=== PATIENT | male | born 1960 | race Caucasian/White ===

== ENCOUNTER → 2023-08-12 07:13 | Outpatient (REF) | payer BC, SELFPAY | LOC: RAD 07:13 | PROVIDERS: ATTENDING PHYSICIAN Family Medicine | DX: F17.210 Nicotine dependence, cigarettes, uncomplicated (principal) | CPT/HCPCS: 71271 ==

== ENCOUNTER → 2023-12-24 06:46 | Outpatient (REF) | payer BC, SELFPAY | LOC: RSP 06:46 | PROVIDERS: ATTENDING PHYSICIAN Family Medicine | DX: F17.210 Nicotine dependence, cigarettes, uncomplicated (principal); R53.83 Other fatigue | CPT/HCPCS: 94727; 94729; 94010 ==

== ENCOUNTER → 2024-06-10 06:53 | Outpatient (REF) | payer BC, SELFPAY | LOC: RAD 06:53 | PROVIDERS: ATTENDING PHYSICIAN Family Medicine | DX: I73.9 Peripheral vascular disease, unspecified (principal) | CPT/HCPCS: 93922 ==

== ENCOUNTER → 2024-11-30 07:36 | Outpatient (REF) | payer BC, SELFPAY ==
[2024-12-01 14:14] LABS: Lyme Antibody Screen, EIA Presump. Positive (Negative)
[2024-12-05 18:54] LABS: Lyme Ab Western Blot IgG Positive (Negative); Lyme Ab Western Blot IgM Positive (Negative)
== END ==
LOC: RAD 07:36
PROVIDERS: ATTENDING PHYSICIAN Family Medicine
DX: Z87.891 Personal history of nicotine dependence (principal); Z12.2 Encounter for screening for malignant neoplasm of respiratory organs; M25.50 Pain in unspecified joint
CPT/HCPCS: 36415; 71271; 86617; 86618

== ENCOUNTER → 2025-01-06 07:58 | Outpatient (REF) | payer BC, SELFPAY | LOC: RAD 07:58 | PROVIDERS: ATTENDING PHYSICIAN Surgery Vascular Surgery; FAMILY PHYSICIAN Family Medicine | DX: I73.9 Peripheral vascular disease, unspecified (principal) | CPT/HCPCS: 93922; 93925 ==

== ENCOUNTER 2025-02-02 06:10 | Day surgery (SDC) | payer BC, SELFPAY ==
[2025-01-30 09:50] VITALS: BMI 26.3
[2025-01-30 10:38] LABS: APTT 25.2 Sec (23.4-35.0); INR 0.98; PT 13.3 Sec (11.4-14.6)
[2025-01-30 10:49] LABS: Hematocrit 41.3 % (39.0-52.0); Hemoglobin 14.0 g/dL (13.0-18.0); Mean Corp Hgb Conc. 33.9 g/dL (33.0-37.0); Mean Corpuscular Volume 86.4 fL (80.0-94.0); Nucleated Red Blood Cells % 0 % (-); Platelet Count 262 10^3/uL (130-400); Red Cell Dist. Width 12.5 % (11.5-14.5)
[2025-01-30 10:53] LABS: Blood Urea Nitrogen 28 mg/dl (9-20); Calcium 10.2 mg/dl (8.4-10.2); Carbon Dioxide 25 mmol/L (22-30); Chloride 103 mmol/L (98-107); Estimated Creatinine Clearance 56 ml/min; Glucose 106 mg/dl (70-99); Potassium 4.6 mmol/L (3.5-5.1); Sodium 137 mmol/L (135-145); eGFR > 60.00
[2025-02-02] VITALS (16 sets, daily range): BP systolic 12–148; BP diastolic 74–95; BMI 26.6
[2025-02-02] MEDS: NSS 500 IV (06:50)
--- NOTE | 2025-02-02 07:15 | W.SUR.PREOP ---
Pre-Operative Surgical Note
-
I have examined this patient prior to the performance of the scheduled procedure.
The patient's condition is unchanged from the time of the current History and
Physical and the patient is able to undergo the scheduled procedure.
Note I discussed extensively with the patient indications for angiogram for claudication with failure of exercise therapy/regular walking regimen. Discussed with him findings of ultrasound. Discussed that he does have common femoral disease that
may be not amenable to endovascular therapy (may require staged surgical revascularization). Discussed procedure of angiography, anticipated outcomes/recovery. Discussed risks of procedure including but not limited to bleeding, arterial
injury/worsened or acute limb ischemia, renal failure. He understands all and wishes to proceed. Plan right lower extremity arteriogram, possible angioplasty/stent
[2025-02-02] MEDS: LOW STRENGTH ASPIRIN 81 MG PO (07:20)
--- NOTE | 2025-02-02 08:13 | W.SUR.POST ---
Surgical Immediate Post Op
Note
Pre Op Diagnosis: PAD
Post Op Diagnosis: PAD
Procedure Performed: RLE diagnostic arteriogram
Primary Surgeon: Derian
Anesthesia: local and anesthesia
Estimated Blood Loss: <2cc
Fluids: see anesthesia flow sheet
Drains/Shunts: none
Specimens/Cultures: none
Doppler/Duplex/Angio (Y/N): Y
Complications: none
Operative Findings: No endovascular options
--- NOTE | 2025-02-02 08:22 | OR.RPT ---
Operative Report
Operative Report
PROCEDURE DATE: 02/02/2025
Preoperative diagnosis: Debilitating right lower extremity claudication
Postoperative diagnosis: Same
Procedure:
1. Duplex assisted cannulation of left common femoral artery.
2. Aortogram and pelvic angiogram.
3. Right lower extremity arteriogram with selective catheterization of right common femoral artery via left common femoral artery puncture.
4. Left femoral angiogram.
Surgeon: Derian
Strap Buckler Machine: None
Complications: None
Anesthesia: General
Fluoroscopy:
4.5 min
64 mGy
13.34 gy.cm2
Indications for procedure:
Debilitating right lower extremity claudication. Risk/benefits/alternatives of angiography were discussed. Patient understood and wished to proceed.
Description of procedure:
Patient was identified, brought to the operating room. Placed on the table in the supine position. After the adequate administration of anesthesia, the patient was prepped and draped in the standard surgical fashion. A standard preoperative
timeout was undertaken and everybody was in agreement with the plan.
The left common femoral artery was accessed with a micropuncture kit under direct duplex ultrasound guidance. A 5 [place] sheath was then advanced over a 0.035 inch wire. Initially I had difficulty getting wire into the aorta past the left common
iliac artery. I exchanged for a glide catheter and a Glidewire and was able to direct the wire relatively easily into the aorta at that point. I then exchanged for a kennedy's hook catheter. The kennedy's hook catheter was advanced into the
abdominal aorta. Aortogram and pelvic angiogram was obtained. Findings as follows:
Infrarenal aorta: Patent with no significant stenosis, significant eccentric calcified plaque noted.
Right common iliac artery: Patent with severe eccentric calcified plaque, but no definitive stenosis.
Right external iliac artery: Patent with bulky popcorn-like plaque, likely at least moderate stenoses in the mid to distal segment.
Left common iliac artery: Patent with bulky calcified plaque, possible mild stenosis but difficult to say and two-dimensional angiography.
Left external iliac artery: Patent with no significant stenosis.
Using a floppy angled hydrophilic wire, the right common femoral artery was cannulated and the catheter was advanced. Right lower extremity arteriogram was obtained. Findings as follows:
Common femoral artery: Patent proximally with bulky popcorn-like plaque in the midsegment. Then the distal common femoral artery/femoral bifurcation appeared essentially occluded.
Profunda femoris artery: Patent proximally with reconstituted flow beyond the occlusion of the femoral bifurcation. However there is only slow flow seen distally. Difficult to say if there is distal obstructive disease or whether this was just
slow flow due to reconstitution of flow in the vessel secondary to proximal occlusion.
Superficial femoral artery: As noted above, occlusion of the femoral bifurcation, but reconstituted flow in the superficial femoral artery with patent flow through the superficial femoral artery with no stenosis identified.
Popliteal artery: Patent with no significant stenosis.
Anterior tibial artery: Patent with no significant stenosis.
Tibial peroneal trunk: Patent with no significant stenosis
Peroneal artery:Patent with no definitive stenosis, but relatively diminutive and poor filling distally. Difficult to say whether what I was seeing as the peroneal artery was the true peroneal or a collateral.
Posterior tibial artery: Patent with no significant stenosis.
At this point I felt that there is nothing endovascular to render here. The patient would likely best be served in terms of revascularization with a femoral endarterectomy (if proximal control could be obtained due to heavy calcific plaque in the
external iliac artery). Potential concomitant retrograde iliac stenting could be performed. Likely will plan CT angiogram in the outpatient setting to better assess the inflow plaque burden.
At this point, the wires and catheters were withdrawn. Angiogram was performed through the sheath that demonstrated good puncture of the left common femoral artery with some mild to moderate plaque disease in the left common femoral artery, but
significantly less than the contralateral side. The sheath was withdrawn and manual pressure was applied to the puncture site. Full hemostasis was achieved.
The patient tolerated procedure well.
[2025-02-02] MEDS: NSS 1000 IV (09:15)
--- NOTE | 2025-02-02 11:00 | PTCARENOTE ---
Dr Menard at patient bedside. Made aware of left groin hematoma. Dr Menard assessed left groin and ordered left side US.
--- NOTE | 2025-02-02 14:05 | PTCARENOTE ---
Dr Menard at pt bedside speaking to pt and assessing pt's left groin. Dr Menard states ultrasound of left groin is normal. Pt is okay for discharge. Will continue to monitor.
== END 2025-02-02 14:30 | disposition home or self-care (01) ==
LOC: CATH 06:10
PROVIDERS: ATTENDING PHYSICIAN Surgery Vascular Surgery; OTHER PHYSICIAN Nuclear Medicine Nuclear Cardiology; PRIMARYCARE PHYSICIAN Family Medicine
DX: I70.212 Atherosclerosis of native arteries of extremities with intermittent claudication, left leg (principal); Z79.82 Long term (current) use of aspirin
CPT/HCPCS: 36246; 75710; 75625; 36415; 80048; 85025; 85610; 85730; 86850; 86900; 86901; 93005; 93926; C1769; C1894

== ENCOUNTER → 2025-02-08 15:59 | Outpatient (REF) | payer BC, SELFPAY | LOC: RAD 15:59 | PROVIDERS: ATTENDING PHYSICIAN Surgery Vascular Surgery; FAMILY PHYSICIAN Family Medicine | DX: I73.9 Peripheral vascular disease, unspecified (principal) | CPT/HCPCS: 75635; Q9967 ==

== ENCOUNTER → 2025-02-23 14:01 | Outpatient (REF) | payer BC, SELFPAY | LOC: RCS 14:01 | PROVIDERS: ATTENDING PHYSICIAN Nuclear Medicine Nuclear Cardiology; FAMILY PHYSICIAN Family Medicine | DX: R00.2 Palpitations (principal) | CPT/HCPCS: 93306 ==

== ENCOUNTER → 2025-02-27 08:14 | Outpatient (REF) | payer BC, SELFPAY | LOC: HWRCS 08:14 | PROVIDERS: ATTENDING PHYSICIAN Nuclear Medicine Nuclear Cardiology; FAMILY PHYSICIAN Family Medicine | DX: I10 Essential (primary) hypertension (principal); Q23.1 Congenital insufficiency of aortic valve; I25.10 Atherosclerotic heart disease of native coronary artery without angina pectoris; R06.02 Shortness of breath | CPT/HCPCS: 78452; 93017; A9500; J2785 ==

== ENCOUNTER 2025-03-09 07:52 | Inpatient (IN) | payer BC, SELFPAY ==
[2025-03-03 09:14] VITALS: BMI 26.3
[2025-03-03 09:56] LABS: Hematocrit 41.2 % (39.0-52.0); Hemoglobin 14.2 g/dL (13.0-18.0); Mean Corp Hgb Conc. 34.5 g/dL (33.0-37.0); Mean Corpuscular Volume 87.7 fL (80.0-94.0); Nucleated Red Blood Cells % 0 % (-); Platelet Count 296 10^3/uL (130-400); Red Cell Dist. Width 12.8 % (11.5-14.5)
[2025-03-03 10:01] LABS: APTT 27.8 Sec (23.4-35.0); INR 1.00; PT 13.5 Sec (11.4-14.6)
[2025-03-03 10:38] LABS: Blood Urea Nitrogen 22 mg/dl (9-20); Calcium 9.9 mg/dl (8.4-10.2); Carbon Dioxide 27 mmol/L (22-30); Chloride 103 mmol/L (98-107); Estimated Creatinine Clearance 69 ml/min; Glucose 106 mg/dl (70-99); Potassium 4.5 mmol/L (3.5-5.1); Sodium 138 mmol/L (135-145); eGFR > 60.00
[2025-03-09] VITALS (10 sets, daily range): BP systolic 106–159; BP diastolic 70–102; BMI 26.3; BMI 26.2
[2025-03-09] MEDS: BACTROBAN NASAL 1 GRAM NASAL (08:32)
[2025-03-09] MEDS: PERIDEX 0.12% ORAL RINSE 15 ML PO (08:32)
[2025-03-09] MEDS: NSS 500 IV (08:32)
--- NOTE | 2025-03-09 08:37 | CON.INTV ---
Consultation
Consultation Request
Date/Time Consultation Requested: 03/09/2025
Date/Time Consultation Performed: 03/09/2025
Medical History
-
Chief Complaint: Limb pain
History of Present Illness:
Patient is a very pleasant 64-year-old gentleman with 40+ pack-year smoking history, who has ongoing symptoms of right leg claudication. He was evaluated by vascular surgery services outpatient and was recommended endarterectomy as part of
treatment. Patient was admitted to the hospital for above surgery, postsurgery was admitted to ICU and beater boss consultation was requested for further input.
Past medical history. Hypertension, hyperlipidemia, history of smoking, gastroesophageal reflux disease, pulmonary nodule, bicuspid aortic valve.
Past surgical history. Left axillary mass biopsy. Inguinal hernia repair.
Family history. No family history of lung cancer.
Social history. Patient has 40+ pack-year smoking history, quit 3 years ago. Currently vaping. Motivated to quit.
Allergies / Home Medications
Allergies
Allergy/AdvReac Type Severity Reaction Status Date / Time
No Known Allergies Allergy Verified 03/09/25 08:23
Home Medications
�Medication �Instructions �Recorded �Confirmed �Last Taken �Type
atenolol 50 mg tablet 50 mg PO DAILY 06/23/15 03/09/25 03/08/25 06:30 History
fenofibrate 160 mg tablet 160 mg PO DAILY 06/23/15 03/09/25 03/08/25 06:30 History
omeprazole 20 mg capsule,delayed 20 mg PO DAILY 06/23/15 03/09/25 03/08/25 06:30 History
release
hydrochlorothiazide 12.5 mg tablet 12.5 mg PO DAILY 01/26/25 03/09/25 03/08/25 06:30 History
multivitamin 1 tab PO NOON 01/26/25 03/09/25 03/08/25 17:00 History
psyllium 1 packet PO DAILY 01/26/25 03/09/25 03/08/25 17:00 History
rosuvastatin 20 mg tablet 20 mg PO DAILY 01/26/25 03/09/25 03/08/25 06:30 History
amlodipine 10 mg-benazepril 40 mg 1 cap PO DAILY 02/02/25 03/09/25 03/08/25 06:30 History
capsule
aspirin 81 mg tablet,delayed 81 mg PO DAILY 02/02/25 03/09/25 03/09/25 06:30 History
release
coenzyme Q10 100 mg capsule 100 mg PO DAILY 02/02/25 03/09/25 03/08/25 06:30 History
(CoQ-10)
glucosamine sulf dipot 2 cap PO DAILY 02/02/25 03/09/25 03/08/25 17:30 History
chlr,msm,chond 550 mg-C 30 mg-red
1 mg capsule (Glucosamine
Chondroitin)
apple cider vinegar 1 dose PO DAILY 02/28/25 03/09/25 03/08/25 17:00 History
calcium carbonate 500 mg PO DAILY 02/28/25 03/09/25 03/08/25 17:00 History
Review of Systems
-
Hematologic/Lymphatic: Other (All 14 systems reviewed and negative except as stated above in the history of present illness.)
Vitals / Labs / Diagnostic Testing
Vital Signs
Temp Pulse Resp BP Pulse Ox
97.8 F 58 16 159/92 97
03/09/25 08:00 03/09/25 08:00 03/09/25 08:00 03/09/25 08:00 03/09/25 08:00
Lab Data
03/03/25 09:12
03/03/25 09:12
Diagnostic Testing:
Physical Exam
-
HEENT: Normocephalic
Cardiovascular: S1/S2
Respiratory: Clear and Non-Labored Respirations
GI: Soft and Non Distended
Neurology: Awake and Alert
Skin: Warm
General: Comfortable
Assessment
-
Patient is a 64 gentleman with history of severe right lower extremity claudication, S/p right femoral endarterectomy with bovine pericardial patch angioplasty by vascular surgery service, POD #0
Continue observation following procedure
Follow neurovascular checks per protocol
ASA, amlodipine, atenolol, Tricor as well as rosuvastatin.
Follow BP monitoring and parameters as set by primary team
Monitor on telemetry
Pain control per protocol
RASS goal 0
[id number] history of smoking, currently vaping.
Prior low-dose CT scan imagings reviewed
Encouraged IS
Diet advancement per protocol
Aspiration precautions
GI prophylaxis: Protonix
Cr at baseline, follow UO
Critical I/Os
Void trials
Replete electrolytes as needed
No signs/symptoms suspicious for infectious etiology at this time
Will observe off antibiotics for now
Follow temperatures/CBC
Hb and platelets postoperatively stable
DVT prophylaxis: SCDs. Defer to surgery service
Other medical diagnoses:
- Bicuspid aortic valve
- Hypertension, hyperlipidemia
- GERD
- History of smoking. 40 Pack years history. Quit 3 years ago. Currently vaping. Motivated to quit. Last spirometry without obstruction. Not on any inhaler therapy at baseline.
- H/o Alcohol use. 6 beers daily. Add MSAS scoring
- Pulmonary nodules. 3 mm, lingula. Stable. Out patient f/u with Pulmonary clinic.
Critical Care time [58] mins -- The patient is admitted for acute critical illness for the treatment of vital organ failure and/or prevention of further life-threatening conditions. Total care includes time spent in review of history, physical exam,
medications, hemodynamic/ventilator parameters, laboratory data, imaging and discussion with house staff, pharmacy, respiratory therapy, senior interactive developer, and nursing
Data:
Lexiscan 02/2025: Normal perfusion imaging
ECHO 02/2025: 1. Ejection fraction is 50-55% by visual assessment.
2. Compared to a prior transthoracic echocardiogram study from September 2022 no significant changes are seen.
3. Aortic valve appears functionally bicuspid (partial fusion of right coronary and noncoronary cusps) with no evidence of aortic stenosis and mild aortic insufficiency.
4. Global strain -17.8%.
5. Mildly dilated aortic root measuring 4.4 cm at the sinuses of Valsalva; 3.7 cm at the sinotubular junction and 3.9 cm in the ascending aorta. Aortic arch is normal in caliber.
6. Mild concentric left ventricular hypertrophy.
7. Moderate to severe tricuspid regurgitation. Estimated pulmonary artery pressure of 29 mmHg assuming a right atrial pressure of [address]
LDCT 11/2024: There is a stable 3 mm nodule within the lingula. No new suspicious pulmonary nodules.
Stable mild fusiform dilation of the ascending thoracic aorta.
LUNG-RADS category: 2 (<1% chance of malignancy)
Spirometry 12/2023: Normal study without evidence of obstruction or restriction. Normal diffusion capacity
--- NOTE | 2025-03-09 08:42 | W.SUR.PREOP ---
Pre-Operative Surgical Note
-
I have examined this patient prior to the performance of the scheduled procedure.
The patient's condition is unchanged from the time of the current History and
Physical and the patient is able to undergo the scheduled procedure.
--- NOTE | 2025-03-09 11:26 | W.SUR.POST ---
Surgical Immediate Post Op
Note
Pre Op Diagnosis: PAD
Post Op Diagnosis: PAD
Procedure Performed: Right femoral endarterectomy with bovine pericardium patch angioplasty
Primary Surgeon: Sd Menard MD
Die Cast Operator: TATY Gallagher
Anesthesia: GETA
Estimated Blood Loss: 25 ml
Fluids: See anesthesia flow sheet
Drains/Shunts: N/A
Specimens/Cultures: Right femoral plaque
Doppler/Duplex/Angio (Y/N): Y, doppler
Complications: None
Operative Findings: Post operative palpable DP pulse at right foot
[2025-03-09 11:58] LABS: Glucose - Point of Care 111 mg/dl (70-99)
[2025-03-09 12:33] LABS: Hematocrit 35.4 % (39.0-52.0); Hemoglobin 12.4 g/dL (13.0-18.0); Mean Corp Hgb Conc. 35.0 g/dL (33.0-37.0); Mean Corpuscular Volume 87.2 fL (80.0-94.0); Platelet Count 225 10^3/uL (130-400); Red Cell Dist. Width 12.8 % (11.5-14.5)
--- NOTE | 2025-03-09 12:35 | OR.RPT ---
Operative Report
Operative Report
PROCEDURE DATE: 03/09/25
Preoperative diagnosis: Severe debilitating right lower extremity claudication. Bulky common femoral plaque, near occlusive.
Postoperative diagnosis: Same
Procedure: Right femoral endarterectomy (common femoral artery, proximal superficial femoral artery, origin of profunda femoris artery) with bovine pericardial patch angioplasty.
Surgeon: Derian
Supervisor Sample Preparation: MACKENZIE Blair (necessary for assistance with traction/countertraction, following of suture line, assistance with closure)
Complications: None
Anesthesia: General
Indications for procedure:
Debilitating right lower extremity claudication. Severe plaque disease, with bulky occlusive plaque in the distal common femoral artery. There was some external iliac artery plaque 2 and had discussed possibility of angiogram/angioplasty and
stenting if needed. Risk/benefits/alternatives also discussed. Patient understood all wished to proceed.
Description of procedure:
Patient was identified brought to the operating room placed on the table in supine position. After the adequate administration of anesthesia and perioperative antibiotics, he was prepped and draped in the standard surgical fashion. A standard
preoperative timeout was undertaken and everybody was in agreement the plan. A longitudinal incision was made in the right groin that was carried through skin subcutaneous tissue. Using the electrocautery, I continued to dissect down to the level
of the inguinal ligament superiorly. Any lymphatic tissues in her dissection field were ligated between silk ties and divided. I identified the common femoral artery as it emerged from underneath inguinal ligament. There was heavy plaque in the
midsegment, more proximally there was posterior plaque, but the anterior wall was soft and pulsatile. I then dissected the common femoral artery to the bifurcation. The proximal superficial femoral artery was isolated and carefully
circumferentially dissected and a vessel loop passed around it. About 3-4 cm beyond the origin as well as isolated it and it was very soft and disease-free here. Next I dissected the origin of the profunda. I dissected the profunda which was soft
through its entirety for a couple centimeters. There was a proximal branch that emanated laterally that was carefully circumferentially controlled with a vessel loop. Then the main profunda beyond there was also circumferentially carefully
dissected and controlled with the vessel loop. (Vesseloops not yet tightened). There was an additional branch on the common femoral artery that ran posteriorly and then medially that was also carefully circumferentially controlled. There was an
additional branch at the same juncture of that branch that ran posterior and laterally which was also controlled with a vessel.. These were both controlled with Vesseloops after careful circumferential dissection. Next, I dissected underneath the
inguinal ligament. As noted the proximal common femoral artery was softer anteriorly but there was some posterior plaque. Just cephalad to here, there was a moderate plaque in the external iliac artery but there was a strong pulsation here. There
is a good strong pulsation just beyond here into the soft part of the common femoral artery as well. That other plaque in the external iliac was just proximal to the circumflex iliac artery branches. However to get more proximal to there if I
wanted to remove that plaque as well, would have been too far proximal to control from the groin.
Therefore at this point I felt that the artery was soft and clamped both in the proximal common femoral artery/distal external iliac artery just distal to the circumflex iliac branches. I circumferentially dissected here and passed a vessel loop
around.
Now I gave the patient approximately 6000 units of intravenous heparin. Once this had circulated I then clamped the superficial femoral artery beyond the origin where it was soft, and tightened double looped Vesseloops on the profunda and its
branch. Any other Vesseloops were tightened on branches. Next a Derra clamp was placed on the proximal common femoral artery. I then made an arteriotomy with an 11 blade beginning on the very proximal SFA and extending cephalad to the proximal
common femoral artery with a Lacey scissor. I encountered bulky somewhat coral reef like plaque. There was severe bulky plaque in the distal common femoral artery as noted on CT scan and angiographic imaging. I was able to use a [place] to create
an endarterectomy plane cleanly.
I then endarterectomized the plaque mobilizing it in the common femoral artery. I then transected it in the common femoral artery and grasped the plaque and feathered out a nice clean endpoint in the superficial femoral artery. I then grasped that
distal plaque and everted it out of the origin of the profunda. I then sent this off for specimen. I looked down the barrel of the origin of the profunda and the intima was nicely adherent. The distal endpoint on the SFA also looks great. Now I
grasped the proximal plaque and used a [place] to endarterectomized back almost to the level of the clamp that I had on the common femoral artery. Once I did this I then grasped the clamp with a Crile clamp, and then temporarily released my Derra
clamp while teasing the plaque out. It came out en bloc. Now I had an excellent pulsation into the common femoral artery. I now removed any fine debris at the proximal endpoint with fine forceps. I now had a good proximal endpoint as well. Any
fine debris throughout the endarterectomy bed was now removed with fine forceps.
Now I was very satisfied. I flushed heparinized saline. I then used a bovine pericardial patch to sew a long patch angioplasty using a running 5-0 Prolene suture. Prior to completing and tying down my suture line I backbled the false pass arteries, I
then flushed heparinized saline and completed and tied down my suture line. Next I released the vessel loop on the profunda branch, and then released the Derra clamp on the common femoral artery. I then released the main profunda vessel loop and
the SFA clamp. There is now excellent pulsatile flow into all 3 of these vessels. Doppler confirmed excellent signals. A single 5-0 Prolene [id number] stitch was placed along the suture line for hemostasis. Given that the pulsation was so
strong, I did not feel that stenting of the external iliac artery was required at this point.
At this point I meticulously achieved and confirmed full hemostasis. Protamine was given reverse the heparin. I then irrigated. We then closed in layers using 2 layers of 2-0 Vicryl running suture, followed by 3-0 Vicryl deep dermal layer
followed by 4-0 Monocryl subcuticular stitch. Dermabond was applied. The patient tolerated the procedure well. Upon completion he had a palpable DP and PT pulse on the right foot. All sponge, needle, instrument counts were correct at the end of
the case. Patient was transported to recovery room in stable condition.
[2025-03-09 12:43] LABS: Blood Urea Nitrogen 20 mg/dl (9-20); Calcium 8.9 mg/dl (8.4-10.2); Carbon Dioxide 24 mmol/L (22-30); Chloride 109 mmol/L (98-107); Estimated Creatinine Clearance 86 ml/min; Glucose 114 mg/dl (70-99); Potassium 4.2 mmol/L (3.5-5.1); Sodium 137 mmol/L (135-145); eGFR > 60.00
--- NOTE | 2025-03-09 12:50 | PTCARENOTE ---
Patient received from the PACU via bed accompanied by RN x 2. Transferred and admitted to ICU bed 3371. Placed on CM, SB on CM. See water plant pump operator charted on worklist flowsheet. BBS clear but diminished t/o except right base with expiratory wheezes.
S1S2 regular with positive murmur. Right groin surgical site soft but tender with mild SQ emphysema. RLE W&D with sensation and pulses intact. Phan cath in place draining clear yellow urine. IVF hung per order. Right Radial [place] leveled and zeroed
as needed; Good waveform, good square wave. c/o mild discomfort of right groin and discomfort at [place] and Phan cath insertion sites. Bed in low and locked position, call watson within reach.
[2025-03-09 13:09] LABS: Glucose - Point of Care 115 mg/dl (70-99)
[2025-03-09] MEDS: NSS 1000 IV (13:11)
--- NOTE | 2025-03-09 16:00 | PTCARENOTE ---
Addendum entered by Piedad Juarez RN 03/09/25 16:55:
Kristal Montes APN notified of patient's elevated BP. 150-170/84-92. Awaiting orders.
Original Note:
Essentially no change in patient's physical assessment. Right groin site with dressing CDI, site soft, good sensation and pulses RLE. BBS clear but diminished t/o. BP slightly elevated 150-170/70-80s. UO adequate. Sats 97% on 2L/nc.
[2025-03-09] MEDS: THERAGRAN PO (16:13)
[2025-03-09] MEDS: HEPARIN 5000 UNITS SC (16:14)
[2025-03-09] MEDS: TENORMIN 50 MG PO (19:13)
--- NOTE | 2025-03-09 19:25 | PTCARENOTE ---
Report given verbally to oncoming shift, Bernarda RN. Bedside rounds complete. Questions answered.
[2025-03-09] MEDS: TYLENOL 650 MG PO (19:40)
--- NOTE | 2025-03-09 21:54 | PTCARENOTE ---
Initial assessment as documented. B/L DP pulses palpable. C/O mild-moderate pain to R groin site, requested tylenol--given and effective.
[2025-03-10] VITALS (7 sets, daily range): BP systolic 96–150; BP diastolic 68–91; BMI 26.4
[2025-03-10] MEDS: NSS 1000 IV (00:59)
[2025-03-10] MEDS: HEPARIN 5000 UNITS SC ×3 (00:59→16:59)
[2025-03-10 05:30] LABS: Hematocrit 36.0 % (39.0-52.0); Hemoglobin 12.8 g/dL (13.0-18.0); Mean Corp Hgb Conc. 35.6 g/dL (33.0-37.0); Mean Corpuscular Volume 87.6 fL (80.0-94.0); Platelet Count 218 10^3/uL (130-400); Red Cell Dist. Width 13.0 % (11.5-14.5)
--- NOTE | 2025-03-10 05:32 | PTCARENOTE ---
Pt assessment unchanged. Safe environment maintained, call watson within reach.
[2025-03-10 05:38] LABS: INR 1.00; PT 13.7 Sec (11.4-14.6)
[2025-03-10 05:39] LABS: APTT 28.3 Sec (23.4-35.0)
[2025-03-10 05:57] LABS: Blood Urea Nitrogen 15 mg/dl (9-20); Calcium 9.1 mg/dl (8.4-10.2); Carbon Dioxide 22 mmol/L (22-30); Chloride 108 mmol/L (98-107); Estimated Creatinine Clearance 86 ml/min; Glucose 115 mg/dl (70-99); Potassium 4.1 mmol/L (3.5-5.1); Sodium 135 mmol/L (135-145); eGFR > 60.00
[2025-03-10] MEDS: CRESTOR 20 MG PO (07:58)
[2025-03-10] MEDS: NORVASC 10 MG PO (07:59)
[2025-03-10] MEDS: TENORMIN 50 MG PO (07:59)
[2025-03-10] MEDS: TRICOR 145 MG PO (08:00)
[2025-03-10] MEDS: ORETIC 12.5 MG PO (08:00)
[2025-03-10] MEDS: ZESTRIL 40 MG PO (08:00)
--- NOTE | 2025-03-10 08:00 | PTCARENOTE ---
Assumed care at 0715. Patient received lying in bed with eyes closed, lying still and respirations nonlabored. Edinses easily to name called. Shari at bedside to assess, updated with patient clinical status. New orders received. IVF discontinued.
Martinez catheter discontinued. Right A line previously leveled and zeroed, correlates with cuff pressure with good waveform; order now to discontinue. Soraya discontinued and manually pressure held to right radial artery for 5 minutes without evidence
of bleeding, pressure dressing donned. Patient states that right groin site pain is tolerable at 2/10 with rest. However, right groin site discomfort increased to 6/10 with mobility. After line and martinez out, patient assisted OOB to chair and
ambulates in room with gait steady, tolerates well. BBS clear but diminished t/o. S1S2 regular with positive murmur. SR on CM with 1st degree AVB, triplet PVCs noted. Abdomen soft and nontender. Good UO with martinez catheter, will monitor for UO after
martinez dc'd. Good appetite, no N/V. RLE with good sensation and circulation. Right groin site soft, dsg CDI. Call watson in reach.
[2025-03-10] MEDS: ASPIR LOW (ENTERIC COATED) 81 MG PO (08:01)
[2025-03-10] MEDS: PROTONIX 40 MG PO (08:01)
[2025-03-10] MEDS: OSCAL CAL 500 500 MG PO (08:01)
[2025-03-10] MEDS: TYLENOL 650 MG PO ×2 (08:41→17:07)
--- NOTE | 2025-03-10 09:16 | W.PN.VS ---
Addendum entered and electronically signed by Pablito Phan III, MD 03/10/25 11:29:
This patient was seen and examined in collaboration with TATY Gallagher. I agree with the history and physical exam as well as the assessment and plan.
Signed:
Pablito Phan III, MD
Vascular Surgery
[facility]
Original Note:
Today's Communication / Plan
-
Seen and assessed with Dr. Phan
Assessment/Plan
-
Postop day 1 right femoral endarterectomy
Plan:
DC A-line
DC Sylvester
DC IV fluids
Out of bed/ambulate
P.o. medications
Increase diet
Continue ICU for now
Subjective Data
-
Date of Service: March 10, 2025
Patient seen at bedside this a.m. with Dr. Phan. Patient offers no complaints at this time. No events overnight.
Objective Data
-
Vital Signs
Temp Pulse Resp BP Pulse Ox
97.3 F 66 15 150/90 96
03/10/25 04:39 03/10/25 08:00 03/10/25 05:30 03/10/25 08:00 03/10/25 05:43
Intake and Output
03/09/25 03/10/25 03/11/25
06:59 06:59 06:59
Intake Total 2545 / 2625 80 / 80
Output Total 2385 / 2530 145 / 145
Balance 160 / 95 -65 / -65
Intake:
Oral fluids 1030 / 1030
IV fluids (Total) 1515 / 1595 80 / 80
NSS 75 / 75
Nss 1,000 ml @ 80 mls/hr IV . 1440 / 1520 80 / 80
[id number] [facility] Rx#:[id number]
Output:
Urine, Phan 2084 145 / 145
Urine, Voided 300 / 300
Lab Results
03/10/25 05:07
03/10/25 05:07
Calcium 9.1 mg/dl (8.4-10.2) 03/10/25 05:07
Physical Exam
-
AAO x 3
No tachypnea on room air
No tachycardia
Abdomen soft
Groin site clean, dry, intact, soft, flat
Right foot with palpable DP, warm, pink
--- NOTE | 2025-03-10 10:45 | W.PN.INTV ---
Today's Communication / Plan
Recommendations
- Incentive spirometry
- Outpatient follow-up with [facility] pulmonary clinic for pulmonary nodule and history of smoking.
- Vocational Rehabilitation Specialist service will sign off once patient is transferred out of ICU
Assessment
-
Patient is a very pleasant 64-year-old gentleman with 40+ pack-year smoking history, who has ongoing symptoms of right leg claudication. He was evaluated by vascular surgery services outpatient and was recommended endarterectomy as part of
treatment. Patient was admitted to the hospital for above surgery, postsurgery was admitted to ICU and canteen attendant consultation was requested for further input.
In brief, a 64 gentleman with history of severe right lower extremity claudication, S/p right femoral endarterectomy with bovine pericardial patch angioplasty by vascular surgery service, POD #1
Continue observation following procedure
Follow neurovascular checks per protocol
ASA, amlodipine, atenolol, Tricor as well as rosuvastatin.
Follow BP monitoring and parameters as set by primary team
Monitor on telemetry
Pain control per protocol
RASS goal 0
[id number] history of smoking, currently vaping.
Prior low-dose CT scan imagings reviewed
Encouraged IS
Diet advancement per protocol
Aspiration precautions
GI prophylaxis: Protonix
Cr at baseline, follow UO
Critical I/Os
Void trials
Replete electrolytes as needed
No signs/symptoms suspicious for infectious etiology at this time
Will observe off antibiotics for now
Follow temperatures/CBC
Hb and platelets postoperatively stable
DVT prophylaxis: SCDs. Defer to surgery service
Other medical diagnoses:
- Bicuspid aortic valve
- Hypertension, hyperlipidemia
- GERD
- History of smoking. 40 Pack years history. Quit 3 years ago. Currently vaping. Motivated to quit. Last spirometry without obstruction. Not on any inhaler therapy at baseline.
- H/o Alcohol use. 6 beers daily. Add MSAS scoring
- Pulmonary nodules. 3 mm, lingula. Stable. Out patient f/u with Pulmonary clinic. Information added to the discharge section
Critical Care time [58] mins -- The patient is admitted for acute critical illness for the treatment of vital organ failure and/or prevention of further life-threatening conditions. Total care includes time spent in review of history, physical exam,
medications, hemodynamic/ventilator parameters, laboratory data, imaging and discussion with house staff, pharmacy, respiratory therapy, commercial driver's license driver, and nursing
Data:
Lexiscan 02/2025: Normal perfusion imaging
ECHO 02/2025: 1. Ejection fraction is 50-55% by visual assessment.
2. Compared to a prior transthoracic echocardiogram study from September 2022 no significant changes are seen.
3. Aortic valve appears functionally bicuspid (partial fusion of right coronary and noncoronary cusps) with no evidence of aortic stenosis and mild aortic insufficiency.
4. Global strain -17.8%.
5. Mildly dilated aortic root measuring 4.4 cm at the sinuses of Valsalva; 3.7 cm at the sinotubular junction and 3.9 cm in the ascending aorta. Aortic arch is normal in caliber.
6. Mild concentric left ventricular hypertrophy.
7. Moderate to severe tricuspid regurgitation. Estimated pulmonary artery pressure of 29 mmHg assuming a right atrial pressure of 3 [address]
LDCT 11/2024: There is a stable 3 mm nodule within the lingula. No new suspicious pulmonary nodules.
Stable mild fusiform dilation of the ascending thoracic aorta.
LUNG-RADS category: 2 (<1% chance of malignancy)
Spirometry 12/2023: Normal study without evidence of obstruction or restriction. Normal diffusion capacity
Subjective Dataa
Subjective Data
Date of Service:
Date of Service: March 10, 2025
Subjective:
Patient comfortably lying in bed in no acute distress.
Review of Systems
Genitourinary: Other (All 14 systems reviewed and negative except as stated above in the history of present illness.)
Objective Data
Data Reviewed
Vital Signs / I&O / Oxygen:
Vital Signs
Temp Pulse Resp BP Pulse Ox
98 F 75 17 118/83 97
03/10/25 08:00 03/10/25 09:33 03/10/25 09:33 03/10/25 09:33 03/10/25 08:00
Intake and Output
03/09/25 03/10/25 03/11/25
06:59 06:59 06:59
Intake Total 2545 / 2625 1160 / 1160
Output Total 2385 / 2530 225 / 225
Balance 160 / 95 935 / 935
SaO2 97
Nasal Cannula flow liters per 2
minute
Physical Exam
General: Comfortable
HEENT: Normocephalic
Cardiovascular: S1-S2
Respiratory: Clear and Non-Labored Respirations
GI: Soft and Non Distended
Neurology: Awake and Alert
Skin: Warm
Labs/Micro/Reports
Lab Data
03/10/25 05:07
03/10/25 05:07
Laboratory Results
03/10/25
05:07
PT 13.7
INR 1.00
APTT 28.3
[2025-03-10] MEDS: THERAGRAN 1 TABLET PO (11:46)
--- NOTE | 2025-03-10 12:30 | PTCARENOTE ---
Placed on tele pack, patient ambulatory in the room, gait steady, pain tolerable. Voids without difficulty in bathroom. BBS unchanged. Right groin site soft with dressing CDI. SR on CM, no further ectopy noted. Afebrile. Rest of physical assessment
unchanged.
--- NOTE | 2025-03-10 13:19 | CM ---
Initial assessment completed with patient with daughter in room. Patient lives with his SO in a 2 story home, B/B on 2nd, no steps to enter. CONTINUITY READER patient was independent in ADL's and ambulation with no AD, drives, works as a mailman. No DME in home.
No in-home services. No HC-POA. No VA benefits. No psychiatric hospitalizations. PCP is Dr. Yina Boyer. Pharmacy is [facility] on [address] [facility] in [place]. Discharge POC: Anticipate home with no needs.
--- NOTE | 2025-03-10 19:31 | PTCARENOTE ---
Report given verbally to oncoming shift, Horacio WILSON. Bedside rounds complete. Questions answered.
[2025-03-11] MEDS: HEPARIN 5000 UNITS SC ×2 (01:00→07:55)
[2025-03-11 01:02] VITALS: BP 124/92
[2025-03-11 04:16] VITALS: BP 140/89
[2025-03-11 04:40] VITALS: BMI 26.3
[2025-03-11 04:45] LABS: Hematocrit 35.4 % (39.0-52.0); Hemoglobin 12.1 g/dL (13.0-18.0); Mean Corp Hgb Conc. 34.2 g/dL (33.0-37.0); Mean Corpuscular Volume 87.2 fL (80.0-94.0); Platelet Count 214 10^3/uL (130-400); Red Cell Dist. Width 13.0 % (11.5-14.5)
[2025-03-11 05:09] LABS: Blood Urea Nitrogen 18 mg/dl (9-20); Calcium 9.1 mg/dl (8.4-10.2); Carbon Dioxide 27 mmol/L (22-30); Chloride 108 mmol/L (98-107); Estimated Creatinine Clearance 69 ml/min; Glucose 108 mg/dl (70-99); Potassium 4.3 mmol/L (3.5-5.1); Sodium 139 mmol/L (135-145); eGFR > 60.00
--- NOTE | 2025-03-11 07:20 | W.PN.VS ---
Today's Communication / Plan
-
Discussed with Dr. Merrill
Assessment/Plan
-
Postop day 2 right femoral endarterectomy
Plan:
Ready for discharge
Subjective Data
-
Date of Service: March 11, 2025
Patient seen at bedside this a.m resting comfortably. Offers no complaints at this time. No events overnight.
Objective Data
-
Vital Signs
Temp Pulse Resp BP Pulse Ox
98.5 F 59 14 140/89 96
03/11/25 01:35 03/11/25 06:00 03/10/25 12:00 03/11/25 04:16 03/10/25 21:04
Intake and Output
03/10/25 03/11/25 03/12/25
06:59 06:59 06:59
Intake Total 2545 / 2625 3080 / 3080
Output Total 2385 / 2530 225 / 225
Balance 160 / 95 2855 / 2855
Intake:
Oral fluids 1030 / 1030 3000 / 3000
IV fluids (Total) 1515 / 1595 80 / 80
NSS 75 / 75
Nss 1,000 ml @ 80 mls/hr IV . 1440 / 1520 80 / 80
[id number] [facility] Rx#:[id number]
Output:
Urine, Phan 2085 / 2230 225 / 225
Urine, Voided 300 / 300
Other:
Number of approximated MODERATE 1
amounts of urine
Number of approximated LARGE 2
amounts of urine
Lab Results
03/11/25 04:28
03/11/25 04:28
Calcium 9.1 mg/dl (8.4-10.2) 03/11/25 04:28
Physical Exam
-
AAO x 3
No tachypnea on room air
No tachycardia
Abdomen soft
Groin site clean, dry, intact, soft, flat
Right foot with palpable DP, warm, pink
[2025-03-11 07:54] VITALS: BP 152/89
[2025-03-11] MEDS: OSCAL CAL 500 500 MG PO (07:54)
[2025-03-11] MEDS: ASPIR LOW (ENTERIC COATED) 81 MG PO (07:54)
[2025-03-11] MEDS: TENORMIN 50 MG PO (07:55)
[2025-03-11] MEDS: PROTONIX 40 MG PO (07:55)
[2025-03-11] MEDS: ZESTRIL 40 MG PO (07:55)
[2025-03-11] MEDS: ORETIC 12.5 MG PO (07:55)
[2025-03-11] MEDS: NORVASC 10 MG PO (07:55)
[2025-03-11] MEDS: CRESTOR 20 MG PO (07:55)
[2025-03-11] MEDS: TRICOR 145 MG PO (07:56)
--- NOTE | 2025-03-11 08:01 | W.DS.TRANS ---
DC Summary - Industrial Relations Worker
-
Discharge Instructions:
Discharge Diagnosis/Procedures Femoral endarterectomy
Diet As tolerated
Activity No strenuous activity
Driving Restrictions No driving for 1 week
Bathing Restrictions OK to Shower
Instructions:
Stand-Alone Forms: Vascular Surg Discharge Instr
Changes to Home Medications: No
Discharge Medications:
DC Medications w/original date entered in [facility]
atenolol 50 mg tablet 50 mg PO DAILY Blood Pressure 06/23/15
fenofibrate 160 mg tablet 160 mg PO DAILY High Cholesterol 06/23/15
omeprazole 20 mg capsule,delayed release 20 mg PO DAILY Gastrointestinal Issue 06/23/15
hydrochlorothiazide 12.5 mg tablet 12.5 mg PO DAILY Blood Pressure 01/26/25
multivitamin 1 tab PO NOON Supplement 01/26/25
psyllium 1 packet PO DAILY Constipation 01/26/25
rosuvastatin 20 mg tablet 20 mg PO DAILY High Cholesterol 01/26/25
amlodipine 10 mg-benazepril 40 mg capsule 1 cap PO DAILY Blood Pressure 02/02/25
aspirin 81 mg tablet,delayed release 81 mg PO DAILY Blood Clot Prevention/Tx 02/02/25
coenzyme Q10 100 mg capsule (CoQ-10) 100 mg PO DAILY Supplement 02/02/25
glucosamine sulf dipot chlr,msm,chond 550 mg-C 30 mg-red 1 mg capsule (Glucosamine Chondroitin) 2 cap PO DAILY Supplement 02/02/25
apple cider vinegar 1 dose PO DAILY Supplement 02/28/25
calcium carbonate 500 mg PO DAILY Supplement 02/28/25
Home Medication Changes
Pending Results: No
[2025-03-11] MEDS: FLUZONE (6 mos+) 2025-2026 FORMULA 0.5 ML IM (08:24)
--- NOTE | 2025-03-11 08:59 | PTCARENOTE ---
pt received at change of shift from previous RN. pt AAOX3, denies pain. resting comfortably. independent in room. SR on telemetry. pulses palpable. right groin aquacel CDI. pt updated on plan of care. Vascular PA at bedside, order received for
discharge.
--- NOTE | 2025-03-11 09:38 | CM ---
Patient will d/c home today
No CM needs at this time
Plan: Home, no needs
== END 2025-03-11 09:37 | disposition home or self-care (01) | DRG 254 ==
LOC: ICU 07:52
PROVIDERS: Nurse Practitioner; Nurse Practitioner Gerontology; ADMITTING PHYSICIAN Surgery Vascular Surgery; CONSULT PHYSICIAN Internal Medicine; PRIMARYCARE PHYSICIAN Family Medicine
PROC: 04CK0ZZ Extirpation of Matter from Right Femoral Artery, Open Approach (ICD-10-PCS; 2025-03-09)
PROC: 04UK0KZ Supplement Right Femoral Artery with Nonautologous Tissue Substitute, Open Approach (ICD-10-PCS; 2025-03-09)
DX: I73.9 Peripheral vascular disease, unspecified (principal); E78.5 Hyperlipidemia, unspecified; I10 Essential (primary) hypertension; F17.290 Nicotine dependence, other tobacco product, uncomplicated; Z79.82 Long term (current) use of aspirin; Z79.899 Other long term (current) drug therapy; K21.9 Gastro-esophageal reflux disease without esophagitis
CPT/HCPCS: 35371; 36415; 80048; 82962; 85025; 85027; 85610; 85730; 86850; 86900; 86901; 88304; 88311; 90656; C1769; C1894; G0008

== ENCOUNTER → 2025-04-11 07:06 | Outpatient (REF) | payer BC, SELFPAY | LOC: RAD 07:06 | PROVIDERS: ATTENDING PHYSICIAN Registered Nurse; FAMILY PHYSICIAN Family Medicine | DX: I73.9 Peripheral vascular disease, unspecified (principal) | CPT/HCPCS: 93922; 93925 ==